=== PATIENT | female | born 1980 | race Caucasian/White ===

== ENCOUNTER → 2025-04-24 09:44 | Outpatient (REF) | payer BC, SELFPAY | LOC: RAD 09:44 | PROVIDERS: ATTENDING PHYSICIAN Internal Medicine Interventional Cardiology; FAMILY PHYSICIAN Internal Medicine | DX: R06.02 Shortness of breath (principal); R00.2 Palpitations; R07.89 Other chest pain | CPT/HCPCS: 75574; Q9967 ==